=== PATIENT | male | born 1995 | race African-American/Black ===

== ENCOUNTER 2017-04-07 07:48 | Inpatient (IN) | payer OTHER ==
[2017-04-06 14:36] VITALS: BMI 51.5
--- NOTE | 2017-04-07 08:30 | HP ---
Admitting History and Physical - Admission Chief Complaint: Morbid Obesity History Source: Patient Limitations to Obtaining History: No Limitations - Past Medical History Gastrointestinal: Yes: Other (Morbid Obesity) - Past Surgical History Past Surgical History: Yes: None - Smoking History Smoking history: Never smoked - Alcohol/Substance Use Hx Alcohol Use: Yes (occasionaly) - Social History ADL: Independent Home Medications - Allergies Allergies/Adverse Reactions: Allergies Allergy/AdvReac Type Severity Reaction Status Date / Time No Known Allergies Allergy Verified 04/06/17 14:26 - Home Medications Home Medications: Ambulatory Orders NK [No Known Home Medication] 04/06/17 Family Disease History - Family Disease History Family History: Unremarkable Review of Systems - Review of Systems Constitutional: denies: Chills, Fever Eyes: reports: No Symptoms HENT: reports: No Symptoms Neck: reports: No Symptoms Cardiovascular: denies: Chest Pain Respiratory: denies: Cough Gastrointestinal: denies: Abdominal Pain Neurological: denies: Change in LOC Pain Intensity: 0 Physical Examination Constitutional: Yes: No Distress, Calm Neck: Yes: Supple Cardiovascular: Yes: Regular Rate and Rhythm Respiratory: Yes: Regular Gastrointestinal: Yes: Soft, Abdomen, Obese Neurological: Yes: Alert, Oriented Problem List - Problems (1) Morbid obesity Code(s): E66.01 - MORBID (SEVERE) OBESITY DUE TO EXCESS CALORIES (2) Morbid obesity due to excess calories Code(s): E66.01 - MORBID (SEVERE) OBESITY DUE TO EXCESS CALORIES Assessment/Plan 21 male with morbid obesity Laparoscopic possible open vertical sleeve gastrectomy Risks and benefits explained Understands and agrees
[2017-04-07] MEDS ORDERED: KETOROLAC TROMETHAMINE 30 MG/1 ML VIAL ONE (09:47)
[2017-04-07] MEDS ORDERED: DEXAMETHASONE SOD PHOSPHATE 4 MG/1 ML VIAL ONE ×2 (09:47→12:46)
[2017-04-07] MEDS ORDERED: ONDANSETRON 4 MG/2 ML VIAL ONE (09:47)
[2017-04-07] MEDS ORDERED: PROPOFOL 20 ML ONE ×2 (10:06)
[2017-04-07] MEDS ORDERED: SUCCINYLCHOLINE CHLORIDE 200 MG/10 ML VIAL ONE (10:07)
[2017-04-07] MEDS ORDERED: LIDOCAINE HCL/PF 2% SDV 5ML VIAL ONE (10:07)
[2017-04-07] MEDS ORDERED: ROCURONIUM BROMIDE 50 MG/5 ML VIAL ONE ×2 (10:07→11:05)
[2017-04-07] MEDS ORDERED: LIDOCAINE HCL 2% JELLY (5 ML/TUBE) ONE (10:07)
[2017-04-07] MEDS ORDERED: SCOPOLAMINE HYDROBROMIDE 1 PATCH PATCH.TD72 ONE (10:32)
[2017-04-07] MEDS ORDERED: BUPIVACAINE HCL/PF 0.5% (5MG/ML) 10 ML VIAL ONE (10:40)
[2017-04-07] MEDS ORDERED: MIDAZOLAM HCL 2 MG/2 ML SINGLE DOSE VIAL ONE (10:44)
[2017-04-07] MEDS ORDERED: SODIUM CHLORIDE 0.9% P/F 10 ML VIAL IJ ONE (11:05)
[2017-04-07] MEDS ORDERED: ceFAZolin SODIUM 1 GM VIAL ONE (11:05)
[2017-04-07] MEDS ORDERED: ceFAZolin SODIUM 1 GM VIAL IVPB ONE (11:08)
[2017-04-07] MEDS ORDERED: DESFLURANE GAS 240 ML BOTTLE IH ONE (12:12)
[2017-04-07] MEDS ORDERED: BUPIVACAINE HCL/PF 0.5% (5MG/ML) 10 ML VIAL IJ ONE (12:30)
[2017-04-07] MEDS ORDERED: GLYCOPYRROLATE 0.2 MG/1 ML VIAL ONE (12:46)
[2017-04-07] MEDS ORDERED: NEOSTIGMINE METHYLSULFATE 0.5 MG/ML - 10 ML MDV ONE (12:47)
--- NOTE | 2017-04-07 13:03 | OP ---
Operative Note - Note: Operative Date: 04/07/17 Pre-Operative Diagnosis: Morbid Obesity Operation: Laparoscopic vertical sleeve gastrectomy, EGD Findings: No leak/obstruction Post-Operative Diagnosis: Same as Pre-op Surgeon: Saul Brewster Cosmetic Consultant: Freddie Zelaya Anesthesia: General Specimens Removed: Greater curvature of the stomach Estimated Blood Loss (mls): 30 Drains & Tubes with Location: 36 Fr Bougie Operative Report Dictated: Yes
[2017-04-07] MEDS ORDERED: ONDANSETRON 4 MG/2 ML VIAL IVPUSH PRN (13:13)
[2017-04-07] MEDS ORDERED: PROMETHAZINE HCL 25 MG/1 ML VIAL IVPUSH PRN (13:13)
[2017-04-07] MEDS: METOCLOPRAMIDE HCL INJECTION 10 MG/2 ML VIAL IVPB SCH ×3 (13:30→22:53)
[2017-04-07] MEDS: HYDROmorphone HCL CARPU-JECT 1 MG/1 ML DISP.SYRIN IVPB PRN ×3 (13:50→20:05)
[2017-04-07] MEDS ORDERED: HYDROmorphone HCL CARPU-JECT 2 MG/1 ML DISP.SYRIN ONE (13:51)
[2017-04-07 14:08] LABS: MCHC 30.7 g/dl (32.0-35.9); MEAN CELL VOLUME 68.4 fl (80-96); MEAN PLT VOLUME 10.3 fl (7.5-11.1); PLATELET COUNT 231 K/MM3 (134-434); RDW 15.7 % (11.9-15.9); WHITE BLOOD COUNT 13.3 K/mm3 (4.0-10.0)
[2017-04-07 14:26] LABS: ALBUMIN 3.5 g/dl (3.4-5.0); ALK PHOS 124 U/L (45-117); ANION GAP 8 (8-16); BILIRUBIN,TOTAL 0.4 mg/dL (0.2-1.0); CALCIUM 8.7 mg/dL (8.5-10.1); CO2 26 mmol/L (21-32); CREATININE 0.9 mg/dL (0.7-1.3); GLUCOSE,RANDOM 132 mg/dL (74-106); SGOT/AST 31 U/L (15-37); SGPT/ALT 50 U/L (12-78); TOT PROT 6.9 g/dl (6.4-8.2)
--- NOTE | 2017-04-07 14:30 | SPEC ---
DATE OF OPERATION: 04/07/2017 SURGEON: Saul Brewster MD SHOT COAT TENDER: Freddie Zelaya MD PREOPERATIVE DIAGNOSIS: Morbid obesity. POSTOPERATIVE DIAGNOSIS: Morbid obesity. PROCEDURE: Laparoscopic vertical sleeve gastrectomy and upper endoscopy. SPECIMEN: Greater curvature of the stomach. ESTIMATED BLOOD LOSS: 30 mL DRAINS: None. TUBES: A 36-[place]ian bougie. REASON FOR PROCEDURE: This is a 21-year-old gentleman who presented to the office for weight loss options. After describing different options, he decided to proceed with a laparoscopic, possible open vertical sleeve gastrectomy. RISKS AND BENEFITS: After describing the different options for weight loss management, the patient decided to proceed with a laparoscopic, possible open vertical sleeve gastrectomy. The patient was seen by the respective subspecialties and cleared for surgery. The risks and benefits of the procedure were explained. These included bleeding, infection, hernia, WA, DVT, PE, injury to surrounding structures including the liver, colon, bowel, spleen, esophagus, vessel injury, nerve injury, weight regain, gastric leak, staple line leak, sleeve leak, obstruction, vitamin deficiency, hair loss, and as some of the possible complications. The patient understood and signed informed consent. DESCRIPTION OF PROCEDURE: The patient was placed supine on the operating room table. The patient underwent general endotracheal intubation. A Pedraza catheter was inserted. The arms were brought out at 90 degrees and secured. A foot board was placed, and the legs were secured laterally with padding. The abdomen was prepped and draped in the usual sterile fashion. A timeout was performed. An incision was made in the left upper quadrant, and a Veress needle inserted. Pneumoperitoneum was established. Subsequently, the Veress needle was removed, and a 12-mm trocar was placed. The laparoscopic camera was inserted, and inspection of the abdominal cavity was performed. An incision was made in the supraumbilical region, and a 15-mm trocar placed under direct visualization. A 5-mm trocar was then placed in the right upper quadrant, and a 5-mm trocar placed below the left subcostal margin. A stab wound was made in the subxiphoid area, and a Radha clamp inserted and removed to dilate the tract. A Swapnil liver retractor was inserted. The post was secured at the bedside by the nursing staff. The patient was placed in steep reverse Trendelenburg position. The Swapnil liver retractor was used to secure the liver towards the anterior abdominal wall. The pylorus was identified and 6 cm proximal to it, the lesser sac was entered using the Ligasure device. All lateral attachments to the greater curvature of the stomach including the short gastric vessels were ligated using the Ligasure device toward the gastrosplenic and gastrophrenic ligaments. Once this was done in its entirety, it was confirmed that all tubes within the nasal or oropharyngeal cavity including a temperature probe was removed by Anesthesia. The bougie was then inserted by Anesthesia. Transection of the stomach was then begun staying adjacent to the bougie but away from the angularis. Transection of the stomach was performed near the portion of the stomach where the lesser sac was entered. Two laparoscopic Endo- TAMARA black loads were used at this location. Laparoscopic Endo-TAMARA purple loads were then used for the remainder of the transection until the greater curvature of the stomach was fully transected. This was done staying close to the bougie. Care was taken to stay away from the angle of His cephalad. The staple line was then inspected. Hemostasis was identified. An upper endoscopy was then performed after the bougie was removed to look for a leak and or obstruction. The entirety of the esophagus, GE junction and stomach were inspected with the endoscope. The stomach was clamped distally to the staple line. Irrigation solution was placed in the left upper quadrant, and air insufflated via the endoscope. No leaks were identified, and no obstruction was identified. This was done throughout the entirety of the staple line. The staple line was noted to be fully intact. At this point , the irrigation solution was suctioned, and again hemostasis noted. The 15-mm supraumbilical trocar was then removed, and the specimen removed from the site using a sponge stick prado. A Jim Hal device was then used to temporarily close the fascia with a 0 Vicryl suture at this site. The 15-mm trocar was then reinserted, and the 12-mm trocar in the left upper quadrant removed. The fascia at this site was then closed using a Jim Hal device with a 0 Vicryl suture. Again, hemostasis was noted. The Swapnil liver retractor was then removed under direct visualization. Pneumoperitoneum was desufflated, and the fascial sutures were secured. Hemostasis was noted at all incision sites, and Marcaine was injected at all incision sites. All incision sites were closed using 4-0 Biosyn. Sterile dressings were applied. The patient tolerated the procedure well, and was transferred to the recovery room in stable condition with the Pedraza catheter intact. The patient was transferred to telemetry for further monitoring. Isabella FROST/[id number] MTDD
[2017-04-07] MEDS: ACETAMINOPHEN 1000 MG/100 ML VIAL (NON FORMULARY) IVPB SCH ×2 (15:00→21:18)
[2017-04-07] MEDS ORDERED: ACETAMINOPHEN INJECTION 100 ML IVPB ONE (15:02)
[2017-04-07] MEDS: SODIUM CHLORIDE 1,000 ML IV SCH (21:17)
[2017-04-07] MEDS: FAMOTIDINE 20 MG/50 ML IVPB 50 ML IVPB SCH (21:17)
[2017-04-07] MEDS: ONDANSETRON 4 MG/2 ML VIAL IVPB SCH ×2 (21:18→22:55)
[2017-04-07] MEDS: ENOXAPARIN NA (PORCINE) 40 MG/0.4 ML DISP.SYRIN SQ SCH (21:18)
[2017-04-07] MEDS: LACTATED RINGERS SOLUTION 1,000 ML IV SCH (22:53)
[2017-04-08] MEDS: ONDANSETRON 4 MG/2 ML VIAL IVPB SCH ×7 (00:39→23:48)
[2017-04-08] MEDS: HYDROmorphone HCL CARPU-JECT 1 MG/1 ML DISP.SYRIN IVPB PRN ×2 (03:07→12:24)
[2017-04-08] MEDS: ACETAMINOPHEN 1000 MG/100 ML VIAL (NON FORMULARY) IVPB SCH ×3 (03:07→10:48)
[2017-04-08] MEDS: SODIUM CHLORIDE 1,000 ML IV SCH ×2 (05:36→12:25)
[2017-04-08] MEDS: METOCLOPRAMIDE HCL INJECTION 10 MG/2 ML VIAL IVPB SCH ×4 (05:36→23:48)
[2017-04-08 08:12] LABS: MCH 20.8 pg (25.7-33.7); MCHC 30.6 g/dl (32.0-35.9); MEAN CELL VOLUME 67.9 fl (80-96); MEAN PLT VOLUME 10.9 fl (7.5-11.1); PLATELET COUNT 246 K/MM3 (134-434); RDW 15.3 % (11.9-15.9); WHITE BLOOD COUNT 15.8 K/mm3 (4.0-10.0)
[2017-04-08 08:42] LABS: ALBUMIN 3.5 g/dl (3.4-5.0); ANION GAP 8 (8-16); CO2 26 mmol/L (21-32); GLUCOSE,RANDOM 87 mg/dL (74-106)
[2017-04-08 08:46] LABS: ALK PHOS 124 U/L (45-117); BILIRUBIN,TOTAL 0.4 mg/dL (0.2-1.0); CREATININE 0.7 mg/dL (0.7-1.3); SGOT/AST 21 U/L (15-37); SGPT/ALT 43 U/L (12-78); TOT PROT 6.9 g/dl (6.4-8.2)
[2017-04-08] MEDS: FAMOTIDINE 20 MG/50 ML IVPB 50 ML IVPB SCH ×2 (10:48→21:10)
[2017-04-08] MEDS: ENOXAPARIN NA (PORCINE) 40 MG/0.4 ML DISP.SYRIN SQ SCH ×2 (10:49→21:08)
--- NOTE | 2017-04-08 12:39 | PATH ---
Surgical Pathology Report Patient Name: CHELSEA GUSMAN Med. Rec. #: [id number] /Age/Gender: 1995 (Age: 21) / M Account: [id number] Location: 4 W TELEMETRY U Taken: 04/07/2017 Received: 04/07/2017 Reported: 04/08/2017 Physicians: Saul Brewster M.D. Specimen(s) Received GREATER CURVATURE OF STOMACH Clinical History Morbid obesity Final Diagnosis STOMACH, GREATER CURVATURE, LAPAROSCOPIC VERTICAL SLEEVE GASTRECTOMY: PORTION OF STOMACH WITH MILD CHRONIC GASTRITIS. IMMUNOSTAIN FOR H. PYLORI IS NEGATIVE FOR ORGANISMS. Electronically Signed Ramu Mclain M.D. Gross Description Received in formalin, labeled "greater curvature of stomach" is a 113 gram, 16.5 x 4.0 x 3.5 cm. portion of stomach with a stapled margin of resection. The serosa is cates-vegas with minimal attached fat. The mucosa is cates-pink with normal folds. No mucosal masses are identified. Adobe Block Maker sections are submitted in one cassette. /04/07/2017 formerly [facility]04/07/2017
[2017-04-08] MEDS ORDERED: ACETAMINOPHEN 325 MG TABLET (FP) PO PRN (15:01)
--- NOTE | 2017-04-08 15:04 | PN ---
Progress Note (short form) - Note Progress Note: Anesthesia POD#1 S/P Laproscopic gastric Sleeve under GA VSS ,no N/V ,pain is under control. Eating well. No complications to anesthesia seen. Luh Pablo MD.
[2017-04-08] MEDS ORDERED: SODIUM CHLORIDE 1,000 ML IV SCH (15:15)
[2017-04-08] MEDS: LACTATED RINGERS SOLUTION 1,000 ML IV SCH (16:49)
[2017-04-08] MEDS: oxyCODONE HCL 5 MG TABLET PO PRN (19:32)
--- NOTE | 2017-04-08 21:27 | PN ---
Progress Note (short form) - Note Progress Note: No acute events POD 1 Laparoscopic vertical sleeve gastrectomy Pain controlled No nausea Vital Signs Period Temp Pulse Resp BP Sys/Saul Pulse Ox Last 24 Hr 98.0 F-98.7 F 63-78 18-20 115-157/56-90 98 Abd soft, NT CBC,CMP WBC 15.8 K/mm3 (4.0-10.0) H 04/08/17 05:35 RBC 5.72 M/mm3 (4.00-5.60) H 04/08/17 05:35 Hgb 11.9 GM/dL (11.7-16.9) 04/08/17 05:35 Hct 38.9 % (35.4-49) 04/08/17 05:35 MCV 67.9 fl (80-96) L 04/08/17 05:35 MCH 20.8 pg (25.7-33.7) L 04/08/17 05:35 MCHC 30.6 g/dl (32.0-35.9) L 04/08/17 05:35 RDW 15.3 % (11.9-15.9) 04/08/17 05:35 Plt Count 246 K/MM3 (134-434) 04/08/17 05:35 MPV 10.9 fl (7.5-11.1) 04/08/17 05:35 Sodium 140 mmol/L (136-145) 04/08/17 05:35 Potassium 4.7 mmol/L (3.5-5.1) 04/08/17 05:35 Chloride 106 mmol/L (98-107) 04/08/17 05:35 Carbon Dioxide 26 mmol/L (21-32) 04/08/17 05:35 Anion Gap 8 (8-16) 04/08/17 05:35 BUN 10 mg/dL (7-18) 04/08/17 05:35 Creatinine 0.7 mg/dL (0.7-1.3) D 04/08/17 05:35 Creat Clearance w eGFR > 60 (>60) 04/08/17 05:35 Random Glucose 87 mg/dL (74-106) D 04/08/17 05:35 Calcium 9.0 mg/dL (8.5-10.1) 04/08/17 05:35 Total Bilirubin 0.4 mg/dL (0.2-1.0) 04/08/17 05:35 AST 21 U/L (15-37) D 04/08/17 05:35 ALT 43 U/L (12-78) 04/08/17 05:35 Alkaline Phosphatase 124 U/L (45-117) H 04/08/17 05:35 Total Protein 6.9 g/dl (6.4-8.2) 04/08/17 05:35 Albumin 3.5 g/dl (3.4-5.0) 04/08/17 05:35 UGI- no leak/obstruction Clears D/C planning OOB Problem List - Problems (1) Morbid obesity Code(s): E66.01 - MORBID (SEVERE) OBESITY DUE TO EXCESS CALORIES (2) Morbid obesity due to excess calories Code(s): E66.01 - MORBID (SEVERE) OBESITY DUE TO EXCESS CALORIES
--- NOTE | 2017-04-08 21:29 | DS ---
Physical Examination Vital Signs: Vital Signs Temperature 98.0 F 04/08/17 17:00 Pulse Rate 63 04/08/17 17:00 Respiratory Rate 18 04/08/17 17:00 Blood Pressure 136/72 04/08/17 17:00 O2 Sat by Pulse Oximetry (%) 98 04/08/17 08:00 Constitutional: Yes: Calm Eyes: Yes: WNL HENT: Yes: WNL Neck: Yes: Supple Cardiovascular: Yes: Regular Rate and Rhythm Respiratory: Yes: CTA Bilaterally Gastrointestinal: Yes: Soft Wound/Incision: Yes: Dressing Dry and Intact Neurological: Yes: Alert, Oriented Labs: CBC, BMP 04/08/17 05:35 04/08/17 05:35 Discharge Summary Reason For Visit: MORBID OBESITY, ELEV BLOOD PRESSURE Current Active Problems Morbid obesity (Acute) Morbid obesity due to excess calories (Acute) Procedures: Principal: Laparoscopic vertical sleeve gastrectomy, EGD Condition: Stable - Instructions Diet, Activity, Other Instructions: [address] [place] [address] Saul Brewster M.D. [address] [place] [address], [address] [facility] [place] [address] Robotic, Bariatric and General Surgery Postoperative Instructions for Bariatric Surgery Activity: Resume normal everyday activity as tolerated. You may walk and climb stairs without any limitation. We encourage you to walk as often as you can Do not lift anything more than 10 pounds for 8 weeks. At that time, you can return to full activity, including the gym, without limitation. Do not drive a motor vehicle while taking prescribes narcotic pain medication. Wound Care: If you have a bandage in place, leave it on for 3 days. At that time you may remove the outer bandage. If there are strips of tape on the skin after removing the outer bandage, leave them in place. They will fall off by themselves. Do not remove them. If there is clear glue on the skin after removing the outer bandage, leave it in place. Do not pick at it or peel it off. You may shower after taking the outer bandage off, 3 days after your surgery. If incisions become red, warm or open, please call the office. Diet: Continue a sugar-free, non-carbonated Clear liquid diet three times a day for the first week-Stage I diet. In addition, you should drink 8 ounces of water every hour. When drinking, sips should be slow and steady, not large and quick. After the first week, call the office to be advanced to the next dietary stage. Do not advance stages until instructed. Your diet will be advanced over the phone each week. Medications/Pain Management: You may resume previous medications unless told otherwise. The pills may be swallowed whole or broken if scored. You may take the prescribed narcotic pain medication as needed. If the narcotic medication is not needed for pain control, you may take Tylenol. Avoid all other pain medications including Advil, Ibuprofen, Motrin, Aspirin, Naprosyn, Aleve, Celebrex. You will receive Pepcid. Please take this twice a day as prescribed. Dizziness,Headaches/Gas Pain: Make sure you are getting enough fluids daily. Patients on diuretics or water pills may need medication adjusted. Some fluids such as broth or Gatorade may help. Gas pains are common in the first few weeks after surgery. At times they can be worse than surgical pain. Walking can help. You can also use Mylanta, Maalox, or Gas-X. Vomiting/Nausea: This may occur if you eat too fast, don't chew, or eat too much. Go back to fluids. If the vomiting or nausea persists, call the office. Constipation/Diarrhea: You may experience a change in bowel habits. Many things affect this, including a decrease in food intake, not enough fluid and taking pain medication. Some people experience diarrhea after the barium swallow in x-ray. If either persist, call the office. Follow up: Call the office at [phone] for an appointment 2 weeks after your surgical procedure. Disposition: HOME - Home Medications Comprehensive Discharge Medication List: Ambulatory Orders Famotidine [Pepcid] 20 mg PO BID #60 tablet 04/07/17 Oxycodone HCl/Acetaminophen [Percocet 5-325 mg Tablet] 1 - 2 tab PO Q6H #28 tab MDD 4 04/07/17
[2017-04-09] MEDS: HYDROmorphone HCL CARPU-JECT 1 MG/1 ML DISP.SYRIN IVPB PRN (01:55)
[2017-04-09] MEDS: ONDANSETRON 4 MG/2 ML VIAL IVPB SCH ×3 (02:40→11:02)
[2017-04-09] MEDS: METOCLOPRAMIDE HCL INJECTION 10 MG/2 ML VIAL IVPB SCH ×2 (04:43→11:01)
[2017-04-09] MEDS: oxyCODONE HCL 5 MG TABLET PO PRN (09:36)
[2017-04-09] MEDS: FAMOTIDINE 20 MG/50 ML IVPB 50 ML IVPB SCH (09:36)
[2017-04-09] MEDS: ENOXAPARIN NA (PORCINE) 40 MG/0.4 ML DISP.SYRIN SQ SCH (09:37)
[2017-04-09 11:22] VITALS: BP 124/78; PULSE 76; TEMP 98.3
== END 2017-04-09 15:08 | disposition home or self-care (01) | DRG 403 ==
LOC: JSAMEDAYSX 07:48 → J4W 15:30
PROVIDERS: ADMIT Surgery; ATTEND Surgery
PROC: 0DJ08ZZ Inspection of Upper Intestinal Tract, Via Natural or Artificial Opening Endoscopic (ICD-10-PCS; 2017-04-07)
PROC: 0DB64Z3 Excision of Stomach, Percutaneous Endoscopic Approach, Vertical (ICD-10-PCS; principal; 2017-04-07 10:00)
DX: E66.01 Morbid (severe) obesity due to excess calories (principal); Z68.43 Body mass index [BMI] 50.0-59.9, adult; R03.0 Elevated blood-pressure reading, without diagnosis of hypertension
CPT/HCPCS: 36415; 74241-TC; 80053; 85027; 86850; 86900; 86901; 88305-TC; 94010; 94760